=== PATIENT | female | born 2000 | race Caucasian/White ===

== ENCOUNTER 2020-08-15 16:03 | Emergency (ER) | payer BC ==
[~2020-08-15] VITALS: Ht 154.9 cm; Wt 57.6 kg
[2020-08-15 16:16] VITALS: BP 120/77; Ht 154.9 cm; Wt 57.6 kg
== END 2020-08-15 17:17 | disposition home or self-care (01) ==
LOC: ED 16:03
DX: R21 Rash and other nonspecific skin eruption (principal); R42 Dizziness and giddiness